=== PATIENT | male | born 1995 | race Caucasian/White ===

== ENCOUNTER → 2021-01-02 | Outpatient (CLI) | payer BC ==
[2021-01-02 15:21] LABS: POTASSIUM 4.2 mmol/L (3.5-5.1)
[2021-01-02 15:22] LABS: ALBUMIN 4.4 g/dL (3.5-5.0)
[2021-01-02 15:23] LABS: CALCIUM 9.2 mg/dL (8.3-10.5)
[2021-01-02 15:24] LABS: TOTAL PROTEIN 7.4 g/dL (6.4-8.3)
[2021-01-02 15:26] LABS: TOTAL BILIRUBIN 0.7 mg/dL (0.2-1.2)
[2021-01-02 16:16] LABS: EOS % 1.9 % (0.0-4.0); HEMATOCRIT 47.2 % (42.0-52.0); HEMOGLOBIN 15.8 g/dL (13.5-18.0); LYMPH# 1.3 (1.50-4.00); MEAN CELL VOLUME 83 fl (78-100); MEAN CORPUSCULAR HEMOGLOBIN 28 pg (27-31); MEAN CORPUSCULAR HGB CONC 34 g/dL (33-37); MEAN PLATELET VOLUME 9.1 fl (7.4-10.4); MONO # 0.4 (0.20-0.80); NEU # 4.4 (1.40-6.50); PLATELET COUNT 272 K/mm3 (130-400); RED BLOOD COUNT 5.67 M/mm3 (4.20-5.60); RED CELL DISTRIBUTION WIDTH 12.1 % (11.5-14.5); WHITE BLOOD COUNT 6.3 K/mm3 (4.8-10.8)
[2021-01-02 16:17] LABS: EOS # 0.1 (0.04-0.40)
== END ==
LOC: LAB 14:17
PROVIDERS: Internal Medicine
DX: Z00.00 Encounter for general adult medical examination without abnormal findings (principal)

== ENCOUNTER → 2021-01-31 | Outpatient (CLI) | payer BC ==
[2021-01-31 16:35] LABS: ALBUMIN 4.6 g/dL (3.5-5.0)
[2021-01-31 16:38] LABS: TOTAL PROTEIN 7.3 g/dL (6.4-8.3)
[2021-01-31 16:40] LABS: TOTAL BILIRUBIN 0.8 mg/dL (0.2-1.2)
[2021-01-31 16:43] LABS: DIRECT BILIRUBIN 0.3 mg/dL (0.0-0.5)
== END ==
LOC: LAB 16:01
PROVIDERS: Internal Medicine
DX: R89.0 Abnormal level of enzymes in specimens from other organs, systems and tissues (principal)

== ENCOUNTER → 2021-08-29 | Outpatient (CLI) | payer BC ==
[2021-08-29 14:36] LABS: ALBUMIN 4.5 g/dL (3.5-5.0); POTASSIUM 4.2 mmol/L (3.5-5.1)
[2021-08-29 14:39] LABS: TOTAL PROTEIN 7.6 g/dL (6.4-8.3)
== END ==
LOC: LAB 14:13
PROVIDERS: Internal Medicine
DX: R89.0 Abnormal level of enzymes in specimens from other organs, systems and tissues (principal)

== ENCOUNTER → 2022-03-08 | Outpatient (CLI) | payer BC ==
[2022-03-08 15:20] LABS: ALBUMIN 4.5 g/dL (3.5-5.0)
[2022-03-08 15:23] LABS: TOTAL PROTEIN 6.9 g/dL (6.4-8.3)
[2022-03-08 15:25] LABS: TOTAL BILIRUBIN 0.7 mg/dL (0.2-1.2)
[2022-03-08 15:28] LABS: DIRECT BILIRUBIN 0.3 mg/dL (0.0-0.5)
== END ==
LOC: LAB 14:56
PROVIDERS: Internal Medicine
DX: I10 Essential (primary) hypertension (principal); R89.0 Abnormal level of enzymes in specimens from other organs, systems and tissues

== ENCOUNTER → 2024-04-20 | Outpatient (CLI) | payer BC ==
[2024-04-20 10:54] LABS: BASO # 0.04 K/mm3 (0.02-0.10); EOS % 1.4 % (0.0-4.0); HEMATOCRIT 47.3 % (42.0-52.0); HEMOGLOBIN 15.8 g/dL (13.5-18.0); LYMPH# 1.58 K/mm3 (1.50-4.00); MEAN CELL VOLUME 84 fl (78-100); MEAN CORPUSCULAR HEMOGLOBIN 28 pg (27-31); MEAN CORPUSCULAR HGB CONC 33 g/dL (33-37); MEAN PLATELET VOLUME 10.1 fl (7.4-10.4); MONO # 0.48 K/mm3 (0.20-0.80); NEU # 5.03 K/mm3 (1.40-6.50); PLATELET COUNT 268 K/mm3 (130-400); RED BLOOD COUNT 5.62 M/mm3 (4.20-5.60); WHITE BLOOD COUNT 7.2 K/mm3 (4.8-10.8)
[2024-04-20 10:59] LABS: SODIUM 139 mmol/L (136-145)
[2024-04-20 11:00] LABS: ALBUMIN 4.5 g/dL (3.5-5.0)
[2024-04-20 11:01] LABS: CALCIUM 9.7 mg/dL (8.3-10.5)
[2024-04-20 11:02] LABS: GLUCOSE 99 mg/dL (75-110); TOTAL PROTEIN 7.2 g/dL (6.4-8.3)
[2024-04-20 11:03] LABS: CARBON DIOXIDE 22 mmol/L (22-29)
[2024-04-20 11:04] LABS: TOTAL BILIRUBIN 0.9 mg/dL (0.2-1.2)
[2024-04-20 11:07] LABS: AST-SGOT 49 U/L (5-34)
[2024-04-20 11:09] LABS: ALT/SGPT 96 U/L (0-55)
== END ==
LOC: LAB 10:41
PROVIDERS: Internal Medicine
DX: Z00.00 Encounter for general adult medical examination without abnormal findings (principal)